=== PATIENT | female | born 1935 | race Caucasian/White ===

== ENCOUNTER 2016-07-02 06:03 | Emergency (ER) | payer OTHER ==
[~2016-07-02] VITALS: Ht 152.4 cm; Wt 54.5 kg
[~2016-07-02 06:03] MED LIST: LISINOPRIL
[2016-07-02 06:10] VITALS: Ht 152.4 cm; Wt 54.5 kg
[2016-07-02] MEDS ORDERED: LABETALOL HCL 20MG INJ IV ONE (06:30)
--- NOTE | 2016-07-02 06:36 | RADRPT ---
PROCEDURE: CT brain without contrast. CLINICAL INDICATION: Stroke. TECHNIQUE: CT scan of the brain was performed on a multi-detector high-resolution CT scanner. Co ntiguous axial images were obtained from the skull base to the vertex without intravenous contrast. Coronal and sagittal reformatted images were also obtained. Images were reviewed on the PACS works tation. One or more of the following dose reduction techniques were used: - Automated exposure control. - Adjustment of the mA and/or kV according to patient size. - Use of iterative reconstruction technique. Exam CTD/vol = 39.39 mGy. Total exam DLP = 634.23 mGy-cm. COMPARISON: 12/16/2011. FINDINGS: The ventricles and cortical sulci are prominent consistent with mild age related volume loss. There are patchy areas of low attenuation within the periventricular white matter consistent with minimal chronic ischemic changes secondary to small vessel disease. There is no mass effect or midline garett ft. There is no intracranial hemorrhage or abnormal extra-axial collection. The calvarium is intact. There is no evidence of fracture. Visualized paranasal sinuses and mastoi d air cells are clear. IMPRESSION: No acute intracranial abnormality identified. Mild age related volume loss and minimal chronic ischemic white matter disease. A call report was made to Dr. Leonard at 06:32 a.m. .Chauncey Turner MD, MD Date Time Electronically viewed and signed by .Chauncey Turner MD, MD on 07/02/2016 06:35 .T/
[2016-07-02 07:00] LABS: ADD SCAN DIFF NO
[2016-07-02 07:02] LABS: BASOPHILS % 0.2 % (0.0-2.0); EOSINOPHILS # 0.2 10^3/ul (0.0-0.5); EOSINOPHILS % 4.7 % (0.0-7.0); HEMATOCRIT 38.5 % (37.0-47.0); HEMOGLOBIN 12.7 g/dl (12.0-16.0); LYMPHOCYTES # 1.3 10^3/ul (0.8-2.9); LYMPHOCYTES % 29.8 % (15.0-51.0); MEAN CORPUSCULAR HEMOGLOBIN 31.4 pg (29.0-33.0); MEAN CORPUSCULAR VOLUME 95.1 fl (82.0-101.0); MONOCYTE # 0.4 10^3/ul (0.3-0.9); MONOCYTES % 7.9 % (0.0-11.0); NEUTROPHIL # 2.5 10^3/ul (1.6-7.5); NEUTROPHILS % 57.2 % (39.0-77.0); PLATELET COUNT 234 10^3/UL (140-415); RED BLOOD COUNT 4.05 10^6/ul (4.20-5.40); RED CELL DISTRIBUTION WIDTH 12.1 % (11.5-14.5); WHITE BLOOD COUNT 4.4 10^3/ul (4.8-10.8)
[2016-07-02 07:12] LABS: ALBUMIN 4.1 g/dl (3.3-4.9); CHLORIDE 100 mmol/L (97-110); INR 0.97; PARTIAL THROMBOPLASTIN TIME 26.5 Sec (25.0-35.0); POTASSIUM 4.2 mmol/L (3.5-5.1); PROTIME 12.9 Sec (12.2-14.2); SODIUM 140 mmol/L (135-144)
[2016-07-02 07:14] LABS: ALBUMIN/GLOBULIN RATIO 1.07; ALKALINE PHOSPHATASE 121 IU/L (42-121); ANION GAP 13 (8-16); ASPARTATE AMINO TRANSFERASE 42 IU/L (15-46); BILIRUBIN,INDIRECT 0.3 mg/dl (0-1.1); BILIRUBIN,TOTAL 0.3 mg/dl (0.2-1.3); CARBON DIOXIDE 31 mmol/L (21-31); CREATININE 0.71 mg/dl (0.44-1.00); TOTAL PROTEIN 7.9 g/dl (6.1-8.1)
[2016-07-02 07:15] LABS: ALANINE AMINOTRANSFERASE 31 IU/L (13-69); BLOOD UREA NITROGEN 15 mg/dl (7-20); CREATINE KINASE 108 IU/L (23-200); GLUCOSE 94 mg/dl (70-220)
[2016-07-02] MEDS ORDERED: SIMV20TA PO (07:15)
[2016-07-02] MEDS ORDERED: LOSA50TA6 PO (07:15)
[2016-07-02 07:16] LABS: LACTIC ACID 1.9 mmol/L (0.5-2.2)
--- NOTE | 2016-07-02 07:16 | RADRPT ---
PROCEDURE: XR Chest. CLINICAL INDICATION: Altered Mental Status TECHNIQUE: Portable single view of the chest COMPARISON: 12/16/2011 FINDINGS: Cardiomegaly and tortuous and ectatic aorta again seen. Right greater than left apical pleural thic kening is similar to prior. No definite acute infiltrate, pleural effusion, or overt congestive hea rt failure. Superior retraction of the right hilum is again seen. IMPRESSION: Stable abnormal appearance of the right lung apex with hilar retraction. This may all be due to marybeth or infection given stability. No definite acute disease. RPTAT: [facility] Physician Mary Jane Date Time Electronically viewed and signed by Vicky Rondon Physician on 07/02/2016 07:16 LE/
[2016-07-02 07:19] LABS: ACETAMINOPHEN < 10.0 ug/ml (10.0-30.0); ETHANOL < 10.0 mg/dl; SALICYLATE < 1.0 mg/dl (5.0-30.0)
[2016-07-02 07:23] LABS: CK-MB 1.52 ng/ml (0.0-2.4)
[2016-07-02 07:27] LABS: TROPONIN-I 0.013 ng/ml (0.00-0.12)
[2016-07-02] MEDS ORDERED: SOD CHLORIDE 0.9% 100 ML ONE (07:45)
[2016-07-02] MEDS ORDERED: IOHEXOL 100 ML ONE ×2 (07:45→07:51)
[2016-07-02] MEDS ORDERED: IOHEXOL 350MG/ML 50 ML BTL ONE (07:48)
--- NOTE | 2016-07-02 07:51 | ERA ---
ER Documentation Chief Complaint Date/Time DATE: 07/02/16 TIME: 07:41 Chief Complaint found unresponsive but fully dressed this am, cpr by family, nonresponsive HPI This is a 80-year-old Dominican-speaking female with a known history of hypertension. The patient was brought into the emergency department by EMS due to changes in her mental status. The patient went to bed yesterday at 10 PM complaining of mild abdominal discomfort, 9 hours prior to arrival. At 5:30 AM this morning, an hour and a half prior to arrival, the patient went into her son 's room stating that she was not feeling well. The patient had a brief transient loss of consciousness and was caught by her son and placed on the floor. The son stated that he she was not speaking and did not have complete spontaneous recovery. Therefore they phoned 911 and began CPR however they stated that the patient was breathing and did have a pulse but the son was concerned and therefore he had begun CPR. EMS did confirm that the patient had a pulse with spontaneous respiratory efforts during the CPR and therefore they instructed the son to stop. The patient however was not speaking and did have a slight right-sided facial droop. She was hypertensive with a blood pressure of 210/95 and an Accu-Chek of 98. According to the son the patient has not complained of a recent headache chest pain or shortness of breath. 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 ROS All systems reviewed and are negative except as per history of present illness. Medications Home Meds Reported Medications Simvastatin* (Zocor*) 20 Mg Tablet, 20 MG PO QHS, #30 TAB 07/02/16 Losartan Potassium* (Losartan Potassium*) 50 Mg Tablet, 50 MG PO DAILY, TAB 07/02/16 Discontinued Reported Medications [Lisinopril] No Conflict Check 12/16/11 Allergies Allergies: Coded Allergies: No Known Allergy (Unverified , 07/02/16) PMhx/Soc Medical and Surgical Hx: pt denies Surgical Hx Hx Cardiac Disorders: Yes (HTN) Hx Alcohol Use: No Hx Substance Use: No Hx Tobacco Use: No Smoking Status: Never smoker Physical Exam Vitals Vital Signs Date Time Temp Pulse Resp B/P Pulse Ox O2 Delivery O2 Flow Rate FiO2 07/02/16 09:39 54 17 134/72 100 Nasal Cannula 2.0 07/02/16 07:25 52 17 164/83 100 Nasal Cannula 2.0 07/02/16 07:24 Nasal Cannula 2 07/02/16 06:10 96.9 78 16 210/95 97 Physical Exam Constitutional:Well-developed. Well-nourished. HEENT:Normocephalic. Atraumatic.Pupils were equal round reactive to light. Moist mucous membranes.No tonsillar exudates. Fundoscopy exam showed sharp optic disc bilaterally venous pulsations were present. Neck: No nuchal rigidity. No lymphadenopathy. No posterior cervical spine tenderness or step-offs. Respiratory: Not using accessory muscles of respiration.Lungs were clear to auscultation bilaterally. No rhonchi. No rales. No wheezing. Cardiovascular: Regular rate regular rhythm.No murmurs. No rubs were appreciated.S1, S2 normal. Distal pulses are palpable 2+ bilaterally. GI: Abdomen was soft. Nontender. Non Distended. No pulsatile abdominal masses or bruits. No rebound. No guarding. Bowel sounds were present and normal. Muscle skeletal: Patient had no movement of the upper or lower extremities actively. Good muscle tone. Skin: No petechia, no purpura. No lesions on the palms or the soles of the feet. No maculopapular rash. NEURO: Patient opened eyes in response to pain. Patient withdrew to pain. Deep tendon reflexes were equal and symmetrical. Patient did not follow verbal command and was aphasic. Right-sided facial droop. NIH stroke scale was 33 at arrival. Result Diagram: 07/02/1653 07/02/1653 Results 24 hrs Laboratory Tests Test 07/02/16 06:53 07/02/16 07:05 07/02/16 09:34 Acetaminophen Level < 10.0ug/ml Activated Partial Thromboplast Time 26.5Sec Alanine Aminotransferase (ALT/SGPT) 31IU/L Albumin 4.1g/dl Albumin/Globulin Ratio 1.07 Alkaline Phosphatase 121IU/L Ammonia 11umol/l Anion Gap 13 Aspartate Amino Transf (AST/SGOT) 42IU/L Basophils # 0.010^3/ul Basophils % 0.2% Blood Urea Nitrogen 15mg/dl Calcium Level 10.0mg/dl Carbon Dioxide Level 31mmol/L Chloride Level 100mmol/L Creatine Kinase 108IU/L Creatine Kinase Index 1.4 Creatinine 0.71mg/dl Creatinine Kinase MB (Mass) 1.52ng/ml Direct Bilirubin 0.00mg/dl Eosinophils # 0.210^3/ul Eosinophils % 4.7% Ethyl Alcohol Level < 10.0mg/dl Globulin 3.80g/dl Glucose Level 94mg/dl Hematocrit 38.5% Hemoglobin 12.7g/dl Hemoglobin A1c 6.0% INR International Normalized Ratio 0.97 Indirect Bilirubin 0.3mg/dl Lactic Acid Level 1.9mmol/L Lymphocytes # 1.310^3/ul Lymphocytes % 29.8% Mean Corpuscular Hemoglobin 31.4pg Mean Corpuscular Hemoglobin Concent 33.0g/dl Mean Corpuscular Volume 95.1fl Mean Platelet Volume 10.0fl Monocytes # 0.410^3/ul Monocytes % 7.9% Neutrophils # 2.510^3/ul Neutrophils % 57.2% Nucleated Red Blood Cells # 0.010^3/ul Nucleated Red Blood Cells % 0.0/100WBC Platelet Count 67145^3/UL Potassium Level 4.2mmol/L Prothrombin Time 12.9Sec Prothrombin Time Ratio 1.0 Red Blood Count 4.0510^6/ul Red Cell Distribution Width 12.1% Salicylates Level < 1.0mg/dl Sodium Level 140mmol/L Total Bilirubin 0.3mg/dl Total Protein 7.9g/dl Troponin I 0.013ng/ml White Blood Count 4.410^3/ul Bedside Glucose 95mg/dL Urine Bilirubin NEGATIVE Urine Clarity CLEAR Urine Color LT. YELLOW Urine Glucose NEGATIVE% Urine Hemoglobin TRACE Urine Ketones NEGATIVE Urine Leukocyte Esterase TRACE Urine Microscopic RBC Pending Urine Microscopic WBC Pending Urine Nitrite NEGATIVE Urine Specific [place] 1.010 Urine Total Protein NEGATIVE Urine Urobilinogen 0.2 E.U./dL Urine pH 7.0 Current Medications Medications (Trade) Dose Ordered Sig/Shakira Route PRN Reason Start Time Stop Time Status Last Admin Dose Admin Labetalol HCl (Labetalol) 10 mg ONCE ONCE IV 07/02/16 06:30 07/02/16 06:31 DC 07/02/16 07:37 IV Flush 10 ml 10 ml STK-MED ONCE .ROUTE 07/02/16 07:45 3/8/17 07:46 DC 07/02/16 08:35 Sodium Chloride 100 ml @ ud STK-MED ONCE .ROUTE 07/02/16 07:45 07/02/16 07:46 DC 07/02/16 08:36 Iohexol (Omnipaque) 100 ml @ ud STK-MED ONCE .ROUTE 07/02/16 07:45 07/02/16 07:46 DC 07/02/16 08:36 Iohexol (Omnipaque 350mg/ ml) 50 ml STK-MED ONCE .ROUTE 07/02/16 07:48 07/02/16 07:49 DC Aspirin 81 mg 81 mg ONCE ONCE PO 07/02/16 08:00 07/02/16 08:01 DC 07/02/16 07:56 Iohexol (Omnipaque) 100 ml @ ud STK-MED ONCE .ROUTE 07/02/16 07:51 07/02/16 07:52 DC 07/02/16 08:37 Procedures/MDM The patient presented to the emergency department with an acute and persistent change in their mental status. The differential diagnosis is diverse however reversible causes such as hypoglycemia, opiate overdose, thiamine deficiency were immediately considered. The patient was placed on a ekg monitor tech, continuous pulse oximetry and IV access was established. The patients airway was secure however hypoxic events such as anemia, shock, or severe pulmonary disease were all considered as etiologies in this patients presentation. Circulation assessed with good cap refill and did not require fluids or pressure support. Finger stick for rapid glucose determined to be normal. Please note that a code stroke was not initially called when the patient arrived to the son was not present and the only history I have by EMS was that her last known normal time was at 10 PM. Once the son arrived at 7 AM and provided further history it appears that the patient's last known normal time was at 5:[address] scan of the head had already been obtained and showed no acute intracerebral hemorrhage mass-effect or midline shift. Given that the patient was a possible TPA candidate I did phone the telemetry neurologist at [phone] Bennett at 0730. I provided frequent recurrent examinations that the patient and at 7:10 AM the patient was now stating her name. At 7:23 AM the patient was now speaking in full complete sentences and had muscular strength 4 out of 5 in the bilateral upper and lower extremities and following complete verbal command. She was complaining of mild tenderness in the left lower quadrant. Dr. Bennett had suggested obtaining a CTA of the head and neck I also am going to obtain a CT scan of the abdomen to rule out pathology such as an abdominal aortic aneurysm, appendicitis, pancreatitis, perforated peptic ulcer, perforated viscus, Boerhaave's syndrome or visceral pain such as diverticulitis, DKA, esophagitis, hepatitis or bowel obstruction. Due to the improvement of the patient's symptoms she was no longer a TPA candidate. Repeat NIH stroke scale at this time improved from 33 to 16. This patient presented to the emergency department with severely elevated blood pressure. My differential diagnosis included but was not limited to conditions that could end-organ damage such as acute coronary syndrome, acute pulmonary edema, aortic dissection, subarachnoid hemorrhage, intracerebral hemorrhage, cerebral infarction, withdrawal syndromes from beta blockers, or states of catecholamine excess such as pheochromocytoma or drug intoxication. The patient had uncontrolled hypertensive with end-organ damage to suggest hypertensive emergency. The treatment goal was immediate reduction of the mean arterial blood pressure. This was done in a controlled, graded manor, using improvement of the patient's condition as a guide. The patient's blood pressure reduction did not exceed more then a 20-25 percent reduction within the first 30 to 60 minutes. The antihypertensive agent used was IV labetalol. 12 Lead EKG tracing ordered and reviewed by myself showed: Normal sinus rhythm of 71 bpm and no arrhythmia. PA interval normal. QRS duration normal. Incomplete right bundle branch block. No ST segment elevation No ST segment depression. No changes consistent with acute ischemia. CT scan of the abdomen or and reviewed by myself indicated the following is this was also confirmed by the radiologist: No evidence of abdominopelvic mass, lymphadenopathy or acute inflammatory pathology. No evidence of abdominal aortic aneurysm. Diverticulosis. No evidence of acute diverticulitis. Cholelithiasis. Bilateral facet arthropathy of the lower lumbar spine with mild anterolisthesis of L4 over L5. CTA of the head and neck indicated there was no acute ischemic event. The results of the CT neck were reviewed by the radiologist and indicated the followin. No hemodynamically significant stenosis or occlusion in the neck arteries. 2. Mild contour irregularity and beaded appearance of the right cervical internal carotid artery in keeping with fibromuscular dysplasia. 3. 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 4. Scarring and parenchymal distortion with traction bronchiectasis in the right lung apex Observation Note: Time: 4 hours Family Hx: No Hypertension Evaluation: Multiple exams showed improving symptoms and no evidence of worsening of her neurological deficits as they had significantly improved. I spoke with the [facility] physician and did feel that that the patient was stable to be transferred to [facility] for further evaluation into the patient's transient ischemic attack. I did feel the patient's reproducible abdominal pain was from diverticulosis and there is no evidence of diverticulitis. No electrolyte abnormalities. Critical Care: Time: 65 minutes Treatments/Evaluations: Close monitoring and treatment of unstable vital signs, cardiorespiratory, and neurologic status, while maintaining tight balance of fluid, respiratory, and cardiac interventions. Time does not include performing any of the above billable procedures. Departure Diagnosis: Primary Impression: Altered level of consciousness Additional Impressions: Diverticulosis Qualified Code: K57.30 - Diverticulosis of large intestine without hemorrhage Cholelithiasis Qualified Code: K80.20 - Calculus of gallbladder without cholecystitis without obstruction Transient ischemic attack Qualified Code: G45.9 - Transient cerebral ischemia, unspecified type Condition: Serious MARION LISA Jul 02, 2016 07:51
[2016-07-02] MEDS ORDERED: ASPIRIN 81 MG TAB PO ONE (08:00)
--- NOTE | 2016-07-02 08:54 | RADRPT ---
PROCEDURE: CT Abdomen and Pelvis with contrast. CLINICAL INDICATION: Pain. Evaluate for abdominal aortic aneurysm. TECHNIQUE: Multiple contiguous axial CT images of the abdomen and pelvis were obtained following t he administration of 80 cc of Omnipaque 350. Coronal and sagittal reconstructions were also perform ed. CTDIvol (mGy): 12.41; Total Exam DLP (mGy-cm): 599.76. One or more of the following dose reduction techniques were utilized: - Automated exposure control. - Adjustment of the mA and/or kV according to patient size. - Use of iterative reconstruction technique. COMPARISON: None. FINDINGS: Limited imaging of the lower thorax demonstrates minimal mild scarring within the right middle lobe and lingula. The liver and spleen are homogeneous in enhancement. A tiny hyperdense focus is seen within the gal lbladder lumen suggesting the presence of cholelithiasis. The pancreas and adrenal glands are unrem arkable. The kidneys are symmetric in size and enhancement. There is no hydronephrosis or abnormal perinephr ic inflammation. There are no ureteral stones. The abdominal aorta is normal in caliber with scattered atherosclerotic calcification. There is no evidence of abdominal aortic aneurysm. There is no periaortic / retroperitoneal lymphadenopathy. The stomach and small intestines are unremarkable. Diffuse diverticulosis is present. The appendix is normal. There are no focal inflammatory changes of the mesentery. There is no mesenteric lymph adenopathy. There is no ascites. The bladder, uterus and adnexa are unremarkable. There is no free pelvic fluid. There is no pelvic sidewall or inguinal lymphadenopathy. Bilateral facet arthropathy of the lower lumbar spine is observed. Mild anterolisthesis of L4 over L5 is present. Body wall soft tissues are unremarkable. IMPRESSION: No evidence of abdominopelvic mass, lymphadenopathy or acute inflammatory pathology. No evidence of abdominal aortic aneurysm. Diverticulosis. No evidence of acute diverticulitis. Cholelithiasis. Bilateral facet arthropathy of the lower lumbar spine with mild anterolisthesis of L4 over L5. RPTAT: EE .Katlyn Garcia MD, Date Time Electronically viewed and signed by .Katlyn Garcia MD, on 07/02/2016 08:54 .T/
--- NOTE | 2016-07-02 08:59 | RADRPT ---
PROCEDURE: CTA Brain. CLINICAL INDICATION: Code stroke TECHNIQUE: The study was performed utilizing a multi-slice multidetector CT scanner. Direct spiral 0.65 mm axial sections were obtained through the intracranial vasculature with the use of 80 cc of Onipaque 350 nonionic intravenous contrast material. Coronal and sagittal MPRs as well as maximal i ntensity projection reformations were obtained. The images were reviewed on a PACS workstation. The CTDIvol is 165, 4.2 12, 57.75, and 13.76 mGy and the DLP is 525.56 mGycm. One or more of the following dose reduction techniques were used: Automated exposure control Adjustment of the mA and/or kV according to patient size. Use of iterative reconstruction technique. COMPARISON: No prior studies are available for comparison. FINDINGS: The internal carotid arteries are patent and normal in caliber. The anterior cerebral and middle cer ebral arteries are patent and normal in caliber. The vertebral arteries, basilar artery, superior c erebellar arteries, and posterior cerebral arteries are all normal in appearance. No aneurysm is id entified. No vascular malformation is seen. IMPRESSION: Normal CT angiogram of the intracranial vasculature. RPTAT: BB .Elle Mcclelland MD, MD Date Time Electronically viewed and signed by .Elle Mcclelland MD, on 07/02/2016 08:59 .O/
--- NOTE | 2016-07-02 09:11 | RADRPT ---
PROCEDURE: CTA neck CLINICAL INDICATION: CVA altered mental status. TECHNIQUE: The study was performed utilizing a multi-slice multidetector CT scanner. Direct thin s ection helical 0.625 mm axial sections were obtained through the neck after the uneventful administr ation of 80 cc of Omnipaque 350 nonionic intravenous contrast material. Coronal and sagittal as wel l as maximal intensity projection reformations were obtained. 3-D images were made. The images were reviewed on a PACS workstation. The total CTDIvol is 1.65, 4.12, 57.75, and 13.76 mGy and the DLP i s 525.56 mGy-cm. One or more of the following dose reduction techniques were used: Automated exposure control. Adjustment of the mA and/or kV according to patient size. Use of iterative reconstruction technique. COMPARISON: No prior studies are available for comparison. FINDINGS: CTA NECK: The origins of the great vessels off the aortic arch are patent and normal in caliber wi thout significant stenosis. The common carotid arteries are normal in appearance without significan t atherosclerotic plaque or stenosis. There is a beaded appearance of the right cervical internal ca rotid artery suggesting fibromuscular dysplasia. There is pleuroparenchymal scarring with parenchyma l distortion and traction bronchiectasis in the right lung apex. 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 The verteb ral arteries are also patent and normal in caliber bilaterally. There is no evidence of a hemodynam ically significant stenosis or dissection. IMPRESSION: 1. No hemodynamically significant stenosis or occlusion in the neck arteries. 2. Mild contour irregularity and beaded appearance of the right cervical internal carotid artery in keeping with fibromuscular dysplasia. 3. Small 0.6 x 0.5 cm hypervascular mass at the left carotid bifurcation most consistent with a car otid body tumor. 4. Scarring and parenchymal distortion with traction bronchiectasis in the right lung apex RPTAT: BB .Elle Mcclelland MD, Date Time Electronically viewed and signed by .Elle Mcclelland MD, on 07/02/2016 09:10 .O/
[2016-07-02 10:10] LABS: ADD UMIC YES; URINE BILIRUBIN (Dip) NEGATIVE (NEGATIVE); URINE BLOOD (Dip) TRACE (NEGATIVE); URINE COLOR LT. YELLOW (YELLOW); URINE GLUCOSE (Dip) NEGATIVE (NEGATIVE); URINE KETONES (Dip) NEGATIVE (NEGATIVE); URINE LEUKOCYTE ESTERASE (Dip) TRACE (NEGATIVE); URINE NITRITE (Dip) NEGATIVE (NEGATIVE); URINE TOTAL PROTEIN (Dip) NEGATIVE (NEGATIVE); URINE UROBILINOGEN (Dip) 0.2 E.U./dL (0.1-1.0)
[2016-07-02 10:30] LABS: BARBITURATES Negative (NEGATIVE); BENZODIAZEPINES Negative (NEGATIVE); CANNABINOIDS Negative (NEGATIVE); COCAINE Negative (NEGATIVE); OPIATES Negative (NEGATIVE)
[2016-07-02 10:33] LABS: SQUAMOUS EPITHELIAL CELL,UR FEW; URINE RBCS 0-2 /HPF (0)
[2016-07-02] MEDS ORDERED: DICLOFENAC SODIUM 37.5 MG/ML VIAL IV STA (11:28)
[2016-07-02 11:58] VITALS: BP 121/68; PULSE 56; RESP 17
== END 2016-07-02 12:01 | disposition short-term general hospital (02) ==
LOC: E/R 06:03
DX: R40.4 Transient alteration of awareness (principal); K57.30 Diverticulosis of large intestine without perforation or abscess without bleeding; K80.20 Calculus of gallbladder without cholecystitis without obstruction; G45.9 Transient cerebral ischemic attack, unspecified; I10 Essential (primary) hypertension
CPT/HCPCS: 36415; 70450; 70496; 70498; 71010; 74177; 80053; 80306; 80307; 81001; 82140; 82550; 82553; 82962; 83036; 83605; 84484; 85025; 85610; 85730; 93005; 96374; 96375; 99291; Q9967; 81003